=== PATIENT | female | born 1975 | race Caucasian/White ===

== ENCOUNTER 2017-01-20 11:18 | Emergency (ER) | payer MEDICARE, OTHER ==
[~2017-01-20] VITALS: Ht 162.6 cm; Wt 113.4 kg
[2017-01-20] MEDS ORDERED: ZITHROMAX250 MG PO (14:37)
[2017-01-20] MEDS ORDERED: NORCO 5-325 TA1 EACH PO (14:37)
== END 2017-01-20 14:54 | disposition home or self-care (01) ==
LOC: ED 11:18
DX: J18.9 Pneumonia, unspecified organism (principal)
CPT/HCPCS: 71020; 80053; 81001; 85025; 96361; 96374; 96375; 99283; J0696; J1170; J2405; J7030

== ENCOUNTER 2018-07-27 21:27 | Emergency (ER) | payer MEDICARE, OTHER ==
[~2018-07-27] VITALS: Ht 162.6 cm; Wt 113.4 kg
[~2018-07-27 21:27] MED LIST: NORCO 5-325 TA1 EACH PO; ZITHROMAX250 MG PO
[2018-07-27] MEDS ORDERED: CLOZAPINE100 MG PO (21:39)
[2018-07-27] MEDS ORDERED: LEVOTHYROXINE25 MCG PO (21:39)
[2018-07-27] MEDS ORDERED: FLUVOXAMINE MA150 MG PO (21:40)
[2018-07-27] MEDS ORDERED: DIVALPROEX SOD500 M1 PO (21:40)
[2018-07-27] MEDS ORDERED: PRAZOSIN HCL1 MG PO (21:40)
[2018-07-27] MEDS ORDERED: CLONAZEPAM0.5 MG PO (21:42)
== END 2018-07-27 22:54 | disposition home or self-care (01) ==
LOC: ED 21:27
DX: F41.9 Anxiety disorder, unspecified (principal); F29 Unspecified psychosis not due to a substance or known physiological condition; Z79.899 Other long term (current) drug therapy
CPT/HCPCS: 99283

== ENCOUNTER 2021-09-12 05:47 | Day surgery (SDC) | payer MEDICARE, OTHER ==
[~2021-09-12] VITALS: Ht 170.2 cm; Wt 77.3 kg
--- NOTE | ~2021-09-12 | OR ---
[facility] [address], [place] [address] Draft DATE OF OPERATION: 09/12/2021 SURGEON: Sierra Lee DO CORNCOB PIPE MANUFACTURING SUPERVISOR: Schuler. PROCEDURE: Laparoscopic left salpingectomy with excision of left paratubal cyst. PREOPERATIVE DIAGNOSES: Left adnexal cyst, intellectual disability, schizoaffective disorder, obesity. POSTOPERATIVE DIAGNOSES: Left paratubal cyst, intellectual disability, schizoaffective disorder, obesity. BLOOD LOSS: 5 mL. ANESTHESIA: General. COMPLICATIONS: None. INDICATIONS: The patient is a 46-year-old female with incidentally found adnexal mass on routine preventative pelvic exam. Ultrasound was significant for bilobed cystic mass exceeding 5 cm in total dimension. Risks, benefits, and alternatives to surgical versus expectant management including risk of ovarian torsion were discussed with the patient and both her parents, her legal guardians and they elected to proceed with laparoscopic left cystectomy, possible oophorectomy. DESCRIPTION OF PROCEDURE: The patient was taken back to the operating room where she was given 5000 units heparin subcutaneously. She was placed under general anesthesia and positioned in dorsal lithotomy and was prepped and draped in a normal sterile fashion. Storm catheter was inserted. Weighted speculum could not be inserted due to narrow introitus and cervix was palpated, Allis clamp was placed on the anterior lip of the cervix. Hulka uterine manipulator was placed via palpation into the cervical os. Surgeon's gloves were PATIENT NAME: JOYMEL OPERATIVE REPORT DATE OF : 73 REPORT #: [id number] PHYSICIAN: SIERRA LEE DO PCP: SHARON LI DO REPORT IS CONFIDENTIAL AND NOT TO BE RELEASED WITHOUT AUTHORIZATION [facility] [address], [place] [address] Draft changed and attention was turned to the abdomen. Local anesthetic was injected infraumbilically and a curvilinear infraumbilical incision was made with a scalpel. This was carried down to the underlying layer of fascia with blunt and sharp dissection with Metzenbaum scissors which were then used to incise the fascia. Superior lip of the fascia was secured with a stay suture of 0 Vicryl. In a similar manner, the inferior lip of the fascia was secured with a stay suture of 0 Vicryl. Peritoneum was entered bluntly and Mariana trocar was placed without difficulty. Abdomen was insufflated with CO2 gas and intra-abdominal placement was confirmed with the scope. Local anesthetic was injected in the left lower abdomen and a 5 mm incision was made with a scalpel and 5 mm trocar was placed under direct visualization without difficulty or complication. In a similar manner on the right lower abdomen, local anesthetic was infiltrated. Incision was made with a scalpel and 5 mm trocar was placed without difficulty or complication while under direct visualization. The patient was positioned in Trendelenburg positioning. Blunt graspers were used to facilitate removal of bowel from the pelvis and uterus, tubes, and ovaries were surveyed with findings as noted below. Decision was made to move forward with left salpingectomy and excision of left paratubal cyst. A LigaSure device was introduced. Left tube was cauterized and cut at the cornua and cauterization and cutting was continued laterally through the mesosalpinx to the level of the cyst where the mesosalpinx was transected excising the cyst at the level of the ovary. Cyst remained intact and was removed along with the overlying left tube in a single unit through a 10 cm EndoCatch bag through the umbilical incision. Mariana trocar was then replaced. The scope was replaced in Trendelenburg positioning, was once again resumed. Ovary was reinspected with excellent hemostasis as noted above. Pneumoperitoneum was then evacuated. The fascia was closed with 0 Vicryl. Skin incisions were closed with 4-0 Monocryl. All instrumentation was removed from the vagina including Storm catheter and the patient was taken to recovery in stable and satisfactory condition. Sponge and instrument counts were all correct. DO ANTHONY Mir/MODL /[id number] Copies: PATIENT NAME: MEL HAMILTON OPERATIVE REPORT DATE OF : 73 REPORT #: [id number] PHYSICIAN: SIERRA LEE DO PCP: SHARON LI DO REPORT IS CONFIDENTIAL AND NOT TO BE RELEASED WITHOUT AUTHORIZATION [facility] [address] [place] [address] [place] [address] Draft ~ PATIENT NAME: MEL HAMILTON OPERATIVE REPORT DATE OF : [birth year] REPORT #: [id number] PHYSICIAN: SIERRA LEE DO PCP: SHARON LI DO REPORT IS CONFIDENTIAL AND NOT TO BE RELEASED WITHOUT AUTHORIZATION
[~2021-09-12 05:47] MED LIST changes: +CLONAZEPAM0.5 MG PO; +CLOZAPINE100 MG PO; +DIVALPROEX SOD500 M1 PO; +FLUVOXAMINE MA150 MG PO; +LAMOTRIGINE25 MG PO; +LEVOTHYROXINE25 MCG PO; +PRAZOSIN HCL1 MG PO
--- NOTE | 2021-09-12 06:16 | NUR ---
PT WAS SWABBED FOR COVID 19
--- NOTE | 2021-09-12 09:09 | NUR ---
09/12/21 0909 Alma Doshi 0902 PATIENT ARRIVES TO PACU UNRESPONSIVE TO PAIN. ORAL AIRWAY IN PLACE. RESP EVEN AND UNLABORED, MASK AT 6 LITERS.
--- NOTE | 2021-09-12 10:42 | NUR ---
UNABLE TO VISIT WITH PT AT THIS TIME-DR OLSON IN WITH PT. WILL FOLLOW
--- NOTE | 2021-09-12 10:43 | NUR ---
PT MOTHER ALERTS DS STAFF OF PT URGE TO VOID. PT ASSISTED UP TO COMMODE WITH 2 RN ASSIST, ABLE TO VOID APPROX 400 MLS PINK TINGED URINE WITH ONE SMALL CLOT PRESENT. PT BACK TO STRETCHER SAT AT 90 DEGREES AND PROVIDED BEDSIDE TABLE WITH JELLO. CALL LIGHT WITHIN REACH AND MOTHER AT BEDSIDE.
--- NOTE | 2021-09-12 11:54 | NUR ---
1005/PT ARRIVED VIA STRETCHER FROM PACU. PT WAS DROWSY ON ARRIVAL. VSS. PT DENIES PAIN AND NAUSEA. LAP SITE X3 INTACT AND SMALL AMOUNT OF DRAINAGE NOTED ON ALL THREE. SCD'S IN PLACE. PT CONTINUOUSLY VOICES NEED TO VOID BUT TOO DROWSY TO TRANSFER TO COMMODE. PROVIDED BED SCALES. PT WAS FIRST SUCCESSFUL POST OP VOID 300 ML. BED SCALES REMOVED UNDER PAD CHANGED. NO DRAINAGE NOTED TO ROBERT PAD. POC DISCUSSED AND PT AGREEABLE AT THIS TIME. MOTHER PRESENT AT BEDSIDE. CALL LIGHT WITHIN REACH.
--- NOTE | 2021-09-12 12:00 | NUR ---
1105/PT ALERT AND ORIENTED. VSS. PT DENIES PAIN OR NAUSEA. NO CHANGE TO LAP SITES X3. PT VOICED THE URGE TO VOID. STUDENT NURSE MARCIO ASSISTED PT WITH AMBULATION TO BATHROOM. PT PROVIDED MESH UNDERWEAR AND SANITARY PAD PROVIDED. PT PROVIDED PUDDING. MOTHER REMAINS AT BEDSIDE. NO NEEDS VOICED. CALL LIGHT WITHIN REACH.
--- NOTE | 2021-09-12 12:52 | NUR ---
1212: PT ALERT AND ORIENTED. VSS. PT VOICED NO PAIN OR NAUSUA. LAP SITE X3 REMAIN THE SAME. PT AMBULATES TO RESTROOM WITH RN ASSISTANCE. VOID SUFFICIENT. IV DEC'D BY STUDENT NURSE MARCIO. TIP INTACT. PT DISCHARGES VIA WHEELCHAIR TO FATHER IN PERSONAL VEHICLE AT MAIN HOSPITAL ENTRANCE TO HOME.
--- NOTE | 2021-09-14 15:05 | PATH ---
[facility] [address], [place] [address] Signed SPECIMEN(S): A LEFT PARATUBAL CYST SPECIMEN SOURCE: A. LEFT PARATUBAL CYST CLINICAL HISTORY: Adnexal mass. Left ovarian cystectomy with possible left oophorectomy. FINAL PATHOLOGIC DIAGNOSIS: Designated "left paratubal cyst", excision: - Serous cystadenofibroma. BRP:cml:C2NR MICROSCOPIC EXAMINATION: Histologic sections of all submitted blocks are examined by light microscopy. These findings, together with the gross examination, support the pathologic diagnosis. GROSS DESCRIPTION: The specimen, labeled "SS, A," and designated on the requisition "left paratubal cyst, adnexal mass," is received in formalin and consists of a tubal segment of tissue with attached fimbria that measures 6.7 cm in length and 0.4-0.9 cm in diameter. There is a 3.9 x 3.5 x 3.5 cm serous paratubal cyst abutting the fimbriated extremity. Upon sectioning, the cyst contains a clear orange-cárdenas fluid and two fibrous nodules adherent to the inner cystic wall, ranging from 0.4-0.7 cm in greatest dimension. Actuarial Associate sections are submitted as follows: (A1-A2) - Fimbriated extremity (in entirety), with attached paratubal cyst. (A3) - Tubal sections including paratubal cyst. (A4) - Paratubal cyst wall, fibrous nodules. AT (under the direct supervision of a pathologist) The Gross Description was prepared using a voice recognition system. The report was reviewed for accuracy; however, sound-alike word errors, addition and/or deletions may occur. If there is any question about this report, please contact Client Services. PERFORMING LABORATORY: The technical component was performed by [facility], [address] [place] [id number] (Tool Salvage Worker: Barbara Sandoval MD; CLIA# [id number]). PATIENT NAME: MEL HAMILTON PATHOLOGY DATE OF : 73 REPORT #: [id number] PHYSICIAN: ELAYNE PATHOLOGY PCP: SHARON LI DO REPORT IS CONFIDENTIAL AND NOT TO BE RELEASED WITHOUT AUTHORIZATION [address] [address] Signed Professional interpretation [facility], [address] [place] [address] (CLIA# [id number]). Diagnostician: Richie Boo MD Pathologist Electronically Signed 09/14/2021 Copies: ~ PATIENT NAME: MEL HAMILTON PATHOLOGY DATE OF : 73 REPORT #: [id number] PHYSICIAN: ELAYNE PATHOLOGY PCP: SHARON LI DO REPORT IS CONFIDENTIAL AND NOT TO BE RELEASED WITHOUT AUTHORIZATION
== END 2021-09-12 12:30 | disposition home or self-care (01) ==
LOC: OPS 05:47 → DS 05:47 → OPS 07:30
PROVIDERS: ATTEND Obstetrics & Gynecology
PROC: 0W9J4ZZ Drainage of Pelvic Cavity, Percutaneous Endoscopic Approach (ICD-10-PCS; 2021-09-12)
PROC: 0UB64ZZ Excision of Left Fallopian Tube, Percutaneous Endoscopic Approach (ICD-10-PCS; principal; 2021-09-12 07:30)
DX: D27.1 Benign neoplasm of left ovary (principal); N83.8 Other noninflammatory disorders of ovary, fallopian tube and broad ligament; F79 Unspecified intellectual disabilities; F25.9 Schizoaffective disorder, unspecified; E03.9 Hypothyroidism, unspecified; E66.9 Obesity, unspecified
CPT/HCPCS: 36415; 85025; 86850; 86900; 86901; J0131; J0330; J1100; J1644; J1885; J2405; J2704; J3010; J7121; U0003

== ENCOUNTER 2021-10-27 20:50 | Emergency (ER) | payer MEDICARE, OTHER ==
[~2021-10-27] VITALS: Ht 170.2 cm; Wt 83.0 kg
--- OUTSIDE RECORDS SUMMARY | 2021-10-27 20:52 | XMS ---
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 Care History Medical/Surgical 06/26/2019 [facility] - Patient is currently established with [facility]. If patient is seen in the ED during business hours. Please contact CHWs at [facility]. Care Recommendation: If this patient has had 5 or more Emergency Department visits in the last 12 months.\T\nbsp; Patient will require education on the scope and purpose of the ED as an acute care provider not a Primary Care Provider and should not be utilized for chronic conditions.\T\nbsp; These are guidelines and the provider should exercise clinical judgment when providing care. E.D. VISIT COUNT (12 MO.) 1 [facility] TOTAL 1 NOTE: Visits indicate total known visits. ED/UCC VISIT TRACKING (12 MO.) 10/27/2021 20:51 [facility] Christopher [place] TYPE: Emergency COMPLAINT: - MEDICATION REFILL INPATIENT VISIT TRACKING (12 MO.) No inpatient visits to display in this time frame [email or web address]
[2021-10-27] MEDS ORDERED: CLOZAPINE50 MG (21:02)
[2021-10-27] MEDS ORDERED: CLOZAPINE100 MG PO (21:03)
[2021-10-27] MEDS ORDERED: CLOZAPINE200 MG PO (21:03)
[2021-10-27] MEDS ORDERED: CLOZARIL100 MG PO (21:14)
[2021-10-27] MEDS ORDERED: DEPAKOTE ER500 MG PO ×2 (21:15→21:20)
== END 2021-10-27 21:42 | disposition home or self-care (01) ==
LOC: ED 20:50
DX: F20.9 Schizophrenia, unspecified (principal); Z79.899 Other long term (current) drug therapy
CPT/HCPCS: 99281

== ENCOUNTER 2022-05-07 23:50 | Emergency (ER) | payer MEDICARE, OTHER ==
[~2022-05-07] VITALS: Ht 170.2 cm; Wt 84.5 kg
[~2022-05-07 23:50] MED LIST changes: +CLOZAPINE200 MG PO; +CLOZAPINE50 MG; +CLOZARIL100 MG PO; +DEPAKOTE ER500 MG PO
--- OUTSIDE RECORDS SUMMARY | 2022-05-07 23:54 | XMS ---
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 Care History Medical/Surgical 06/26/2019 [facility] - Patient is currently established with [facility]. If patient is seen in the ED during business hours. Please contact CHWs at [facility]. Care Recommendation: If this patient has had [...] providing care. E.D. VISIT COUNT (12 MO.) 2 [facility] TOTAL 2 NOTE: Visits indicate total known visits. ED/UCC VISIT TRACKING (12 MO.) 05/07/2022 23:51 [facility] [place] TYPE: Emergency COMPLAINT: - DEPRESSED, CONFUSED 10/27/2021 20:51 R[facility] Christopher OR TYPE: Emergency COMPLAINT: - MEDICATION REFILL DIAGNOSES: - Other halfway (current) drug therapy - Schizophrenia, unspecified INPATIENT VISIT TRACKING (12 MO.) No inpatient visits to display in this time frame [email or web address]
== END 2022-05-08 01:42 | disposition home or self-care (01) ==
LOC: ED 23:50
DX: Z76.0 Encounter for issue of repeat prescription (principal); F25.9 Schizoaffective disorder, unspecified
CPT/HCPCS: 99281

== ENCOUNTER 2023-07-23 15:22 | Emergency (ER) | payer MEDICARE, OTHER ==
[~2023-07-23] VITALS: Ht 170.2 cm; Wt 84.5 kg
[2023-07-23 18:15] VITALS: BP 105/58
== END 2023-07-23 18:15 | disposition home or self-care (01) ==
LOC: ED 15:22
DX: F25.9 Schizoaffective disorder, unspecified (principal); Z79.899 Other long term (current) drug therapy; Z79.890 Hormone replacement therapy
CPT/HCPCS: 80053; 80307; 84443; 84703; 85025; 99284; G0480

== ENCOUNTER 2023-09-03 17:06 | Emergency (ER) | payer MEDICARE, OTHER ==
[~2023-09-03] VITALS: Ht 170.2 cm; Wt 90.3 kg
[2023-09-03] MEDS ORDERED: CLOZAPINE100 MG PO (19:17)
[2023-09-03] MEDS ORDERED: CLOZARIL25 MG PO (19:17)
[2023-09-03 19:51] VITALS: BP 119/86
== END 2023-09-03 19:51 | disposition home or self-care (01) ==
LOC: ED 17:06
DX: Z76.0 Encounter for issue of repeat prescription (principal); F25.9 Schizoaffective disorder, unspecified; F42.9 Obsessive-compulsive disorder, unspecified; R56.9 Unspecified convulsions; Z79.899 Other long term (current) drug therapy
CPT/HCPCS: 99281

== ENCOUNTER 2025-02-04 07:25 | Day surgery (SDC) | payer MEDICARE, OTHER ==
[~2025-02-04] VITALS: Ht 165.1 cm; Wt 102.0 kg
[~2025-02-04 07:25] MED LIST changes: +ANAFRANIL25 MG PO; -CLOZAPINE50 MG; +CLOZAPINE50 MG PO; +CLOZARIL25 MG PO; +COL-RITE100 MG PO; +FUROSEMIDE20 MG PO; +IBLOOD GLUCOSE TEST STRIP 1 EA TEST VI PRN; +IRON18 M1 PO; +LACTATED RINGER'S 1,000 ML IV SCH; +LIDOCAINE HCL 1% 5 ML SDV INJ ONE; +METFORMIN HCL500 MG PO; +POTASSIUM CHLOR8 ME1 PO; +PRILOSEC OTC20 MG PO; +VITAMIN C500 M4 PO
[2025-02-04 07:45] VITALS: BP 119/55
[2025-02-04] MEDS ORDERED: LIDOCAINE HCL 2% 5 ML SDV ONE (08:52)
--- NOTE | 2025-02-04 10:04 | NUR ---
02/04/25 1009 Shirley Franz 0566-PT ARRIVES TO PACU, VIA STRETCHER, RESTING SEMI FOWLERS. PT'S O2 SATS 88% ON RA, PLACED ON 6L VIA NC AND SATS IMRPOVED TO 90%. PT REACTIVE TO STIMULI AND FOLLOWS COMMANDS TO DEEP BREATH, BUT FALLS BACK TO SLEEP QUICKLY AND IS UNABLE TO ANSWER QUESTIONS AT THIS TIME. RR EVEN AND UNLABORED.
[2025-02-04 10:31] VITALS: BP 117/80
--- NOTE | 2025-02-08 13:20 | PATH ---
[facility] [address] [facility] [place], [place] [address] Signed SPECIMEN(S): A ANTRUM BIOPSY SPECIMEN(S): B BODY BIOPSY SPECIMEN SOURCE: A. ANTRUM BIOPSY B. BODY BIOPSY CLINICAL HISTORY: History of constipation/reflux, antral gastritis/normal colon FINAL PATHOLOGIC DIAGNOSIS: A. Gastric antrum, biopsy - Benign gastric mucosa with focal vascular congestion, negative for significant inflammation or evidence of intestinal metaplasia. B. Gastric body, biopsy - Minimal chronic gastritis with vascular congestion, negative for active inflammation or intestinal metaplasia. - No H. pylori bacteria are detected by HE stain. AMB MICROSCOPIC EXAMINATION: Histologic sections of all submitted blocks are examined by light microscopy. These findings, together with the gross examination, support the pathologic diagnosis. GROSS DESCRIPTION: A. The specimen, labeled and designated "Marie, antrum biopsy," is received in formalin and consists of one cárdenas soft tissue fragment, 0.5 cm. Entirely submitted in (A1). B. The specimen, labeled and designated "Marie, stomach body biopsy," is received in formalin and consists of one cárdenas soft tissue fragment, 0.6 cm. Entirely submitted in (B1). VB (under the direct supervision of a pathologist) The Gross Description was prepared using a voice recognition system. The report was reviewed for accuracy; however, sound-alike word errors, addition and/or deletions may occur. If there is any question about this report, please contact Client Services. ADDITIONAL NOTES: Immunohistochemical and/or in situ hybridization studies if performed in this case included appropriate positive controls that reacted as expected. This PATIENT NAME: MEL HAMILTON PATHOLOGY DATE OF : 73 REPORT #: [id number] PHYSICIAN: ROD ADHIKARI PCP: SHARON LI DO REPORT IS CONFIDENTIAL AND NOT TO BE RELEASED WITHOUT AUTHORIZATION [facility] [address] [place] [facility] [place] [address] Signed test was developed and its performance characteristics determined by [facility]. It has not been cleared or approved by the U.S. Food and Drug Administration. The FDA has determined that such clearance or approval is not necessary. This test is used for clinical purposes. It should not be regarded as investigational or for research. [facility] is certified under the Clinical Laboratory Improvement Amendments of 1988 (CLIA) as qualified to perform high complexity clinical laboratory testing. PERFORMING LABORATORY: Technical component was performed by [facility], [address] [place] [address] (CLIA# [id number]). Professional interpretation was performed by [email or web address] - [address] [id number] Diagnostician: Barbara Sandoval MD Pathologist Electronically Signed 02/08/2025 Copies: ~ PATIENT NAME: MEL HAMILTON PATHOLOGY DATE OF : 73 REPORT #: [id number] PHYSICIAN: ROD PATHOLOGY PCP: SHARON LI DO REPORT IS CONFIDENTIAL AND NOT TO BE RELEASED WITHOUT AUTHORIZATION
== END 2025-02-04 10:45 | disposition home or self-care (01) ==
LOC: DS 07:25
PROVIDERS: ATTEND Surgery
PROC: 0DB68ZX Excision of Stomach, Via Natural or Artificial Opening Endoscopic, Diagnostic (ICD-10-PCS; principal; 2025-02-04 08:40)
PROC: 0DJD8ZZ Inspection of Lower Intestinal Tract, Via Natural or Artificial Opening Endoscopic (ICD-10-PCS; 2025-02-04 08:40)
DX: K29.50 Unspecified chronic gastritis without bleeding (principal); D50.9 Iron deficiency anemia, unspecified; K64.9 Unspecified hemorrhoids; K59.00 Constipation, unspecified; E11.9 Type 2 diabetes mellitus without complications; F25.9 Schizoaffective disorder, unspecified; E03.9 Hypothyroidism, unspecified; Z79.890 Hormone replacement therapy; Z79.84 Long term (current) use of oral hypoglycemic drugs; Z79.899 Other long term (current) drug therapy; Z88.0 Allergy status to penicillin
CPT/HCPCS: 00813; 36415; 87077; J2003; J2704; J7121